=== PATIENT | male | born 1940 | race Caucasian/White ===

== ENCOUNTER 2017-12-05 06:51 | Outpatient (CLI) | payer OTHER | END 2017-12-05 07:01 | disposition home or self-care (01) | LOC: LAB 06:51 | DX: N18.3 Chronic kidney disease, stage 3 (moderate) (principal); I10 Essential (primary) hypertension; I12.9 Hypertensive chronic kidney disease with stage 1 through stage 4 chronic kidney disease, or unspecified chronic kidney disease; R73.01 Impaired fasting glucose ==

== ENCOUNTER 2018-01-04 06:22 | Outpatient (CLI) | payer OTHER | END 2018-01-04 06:43 | disposition home or self-care (01) | LOC: LAB 06:22 | DX: N40.1 Benign prostatic hyperplasia with lower urinary tract symptoms (principal); R31.9 Hematuria, unspecified; R97.20 Elevated prostate specific antigen [PSA]; I12.9 Hypertensive chronic kidney disease with stage 1 through stage 4 chronic kidney disease, or unspecified chronic kidney disease ==

== ENCOUNTER → 2018-06-01 06:29 | Outpatient (CLI) | payer OTHER | END | disposition home or self-care (01) | LOC: LAB 06:29 | DX: N18.3 Chronic kidney disease, stage 3 (moderate) (principal); I10 Essential (primary) hypertension; R80.8 Other proteinuria ==

== ENCOUNTER 2018-08-28 07:46 | Outpatient (CLI) | payer OTHER | END 2018-08-28 08:34 | disposition home or self-care (01) | LOC: LAB 07:46 | DX: N18.2 Chronic kidney disease, stage 2 (mild) (principal); I10 Essential (primary) hypertension; E11.21 Type 2 diabetes mellitus with diabetic nephropathy; R80.8 Other proteinuria; R97.20 Elevated prostate specific antigen [PSA]; R31.9 Hematuria, unspecified ==

== ENCOUNTER → 2018-12-27 07:57 | Outpatient (CLI) | payer OTHER | END | disposition home or self-care (01) | LOC: LAB 07:57 | DX: N18.2 Chronic kidney disease, stage 2 (mild) (principal); I10 Essential (primary) hypertension; R80.8 Other proteinuria ==

== ENCOUNTER 2019-12-24 06:39 | Outpatient (CLI) | payer OTHER | END 2019-12-24 06:45 | disposition home or self-care (01) | LOC: LAB 06:39 | PROVIDERS: ATTEND Internal Medicine Nephrology | DX: N40.1 Benign prostatic hyperplasia with lower urinary tract symptoms (principal); N18.2 Chronic kidney disease, stage 2 (mild); E11.21 Type 2 diabetes mellitus with diabetic nephropathy; R80.8 Other proteinuria ==

== ENCOUNTER 2021-01-24 10:57 | Emergency (ER) | payer OTHER ==
[~2021-01-24] VITALS: Ht 175.3 cm; Wt 72.1 kg
[2021-01-24] MEDS ORDERED: IRBESARTAN-HCT1 EACH PO (11:11)
[2021-01-24] MEDS ORDERED: TAMSULOSIN HCL0.4 MG PO (11:11)
== END 2021-01-24 21:59 | disposition home or self-care (01) ==
LOC: ER 10:57
DX: R33.8 Other retention of urine (principal); K59.09 Other constipation

== ENCOUNTER 2021-02-16 07:30 | Inpatient (IN) | payer OTHER ==
[~2021-02-16 07:30] MED LIST: IRBESARTAN-HCT1 EACH PO; TAMSULOSIN HCL0.4 MG PO
[2021-02-16] MEDS ORDERED: AVALIDE 300-121 EACH PO (09:28)
== END 2021-02-24 09:44 | disposition home or self-care (01) | DRG 714 ==
LOC: SURG 02-22 05:47 → O/R 02-22 05:47 → SURH 02-22 07:00 → SURG 02-22 13:34
PROVIDERS: ADMIT Urology; ATTEND Urology
PROC: 0VT08ZZ Resection of Prostate, Via Natural or Artificial Opening Endoscopic (ICD-10-PCS; principal; 2021-02-22 07:00)
DX: N40.1 Benign prostatic hyperplasia with lower urinary tract symptoms (principal); R33.8 Other retention of urine; Z20.822 Contact with and (suspected) exposure to COVID-19

== ENCOUNTER 2021-04-27 07:03 | Outpatient (CLI) | payer OTHER ==
[~2021-04-27 07:03] MED LIST changes: +AVALIDE 300-121 EACH PO
== END 2021-04-27 07:04 | disposition home or self-care (01) ==
LOC: LAB 07:03
PROVIDERS: ATTEND Urology
DX: I10 Essential (primary) hypertension (principal); N31.1 Reflex neuropathic bladder, not elsewhere classified; N40.1 Benign prostatic hyperplasia with lower urinary tract symptoms; R97.20 Elevated prostate specific antigen [PSA]; R80.8 Other proteinuria; N18.30 Chronic kidney disease, stage 3 unspecified

== ENCOUNTER 2021-09-25 07:08 | Outpatient (CLI) | payer OTHER | END 2021-09-25 15:00 | disposition home or self-care (01) | LOC: LAB 07:08 | PROVIDERS: ATTEND Internal Medicine Nephrology | DX: N18.30 Chronic kidney disease, stage 3 unspecified (principal); I10 Essential (primary) hypertension; R80.9 Proteinuria, unspecified ==

== ENCOUNTER 2021-09-28 10:59 | Outpatient (CLI) | payer OTHER | END 2021-09-28 11:06 | disposition home or self-care (01) | LOC: LAB 10:59 | PROVIDERS: ATTEND Internal Medicine Nephrology | DX: I12.9 Hypertensive chronic kidney disease with stage 1 through stage 4 chronic kidney disease, or unspecified chronic kidney disease (principal); R80.9 Proteinuria, unspecified; N18.30 Chronic kidney disease, stage 3 unspecified ==

== ENCOUNTER 2021-10-21 09:55 | Outpatient (CLI) | payer OTHER | END 2021-10-21 10:00 | disposition home or self-care (01) | LOC: LAB 09:55 | PROVIDERS: ATTEND Urology | DX: R31.1 Benign essential microscopic hematuria (principal); R97.20 Elevated prostate specific antigen [PSA]; I50.9 Heart failure, unspecified ==

== ENCOUNTER → 2022-06-29 06:51 | Outpatient (CLI) | payer OTHER | END | disposition home or self-care (01) | LOC: LAB 06:51 | PROVIDERS: ATTEND Urology | DX: D50.8 Other iron deficiency anemias (principal); R79.9 Abnormal finding of blood chemistry, unspecified; I10 Essential (primary) hypertension; R74.02 Elevation of levels of lactic acid dehydrogenase [LDH]; K76.89 Other specified diseases of liver; D63.8 Anemia in other chronic diseases classified elsewhere; D55.0 Anemia due to glucose-6-phosphate dehydrogenase [G6PD] deficiency; D51.1 Vitamin B12 deficiency anemia due to selective vitamin B12 malabsorption with proteinuria; D51.0 Vitamin B12 deficiency anemia due to intrinsic factor deficiency; D63.1 Anemia in chronic kidney disease; E06.3 Autoimmune thyroiditis; E03.8 Other specified hypothyroidism; R97.0 Elevated carcinoembryonic antigen [CEA]; R97.8 Other abnormal tumor markers; R97.20 Elevated prostate specific antigen [PSA] ==

== ENCOUNTER 2022-11-01 06:50 | Outpatient (CLI) | payer OTHER | END 2022-11-01 06:51 | disposition home or self-care (01) | LOC: LAB 06:50 | PROVIDERS: ATTEND Internal Medicine Hematology & Oncology | DX: D50.8 Other iron deficiency anemias (principal); R79.9 Abnormal finding of blood chemistry, unspecified; R74.02 Elevation of levels of lactic acid dehydrogenase [LDH]; K76.89 Other specified diseases of liver; D51.8 Other vitamin B12 deficiency anemias; D63.1 Anemia in chronic kidney disease; R97.0 Elevated carcinoembryonic antigen [CEA]; R97.8 Other abnormal tumor markers; R97.20 Elevated prostate specific antigen [PSA]; N18.30 Chronic kidney disease, stage 3 unspecified ==

== ENCOUNTER 2023-01-31 06:43 | Outpatient (CLI) | payer OTHER | END 2023-01-31 06:45 | disposition home or self-care (01) | LOC: LAB 06:43 | PROVIDERS: ATTEND Internal Medicine Hematology & Oncology | DX: E03.9 Hypothyroidism, unspecified (principal); E53.8 Deficiency of other specified B group vitamins; D50.8 Other iron deficiency anemias; R79.9 Abnormal finding of blood chemistry, unspecified; I10 Essential (primary) hypertension; R74.02 Elevation of levels of lactic acid dehydrogenase [LDH]; K76.89 Other specified diseases of liver; D63.1 Anemia in chronic kidney disease; B96.81 Helicobacter pylori [H. pylori] as the cause of diseases classified elsewhere ==

== ENCOUNTER → 2023-04-06 06:39 | Outpatient (CLI) | payer OTHER ==
[2023-04-06 07:23] LABS: HEMATOCRIT 37.5 % (39.0-48.0); MEAN CORPUSCULAR HEMOGLOBIN 30.8 pg (27.00-32.0); MEAN CORPUSCULAR HGB CONC 34.7 g/dl (32.0-36.0); PLATELET COUNT 221 K/uL (150-450); RED BLOOD COUNT 4.21 M/uL (4.00-6.00)
[2023-04-06 08:11] LABS: CREATININE SERUM 1.34 mg/dL (0.70-1.30); GFR 50.91; PHOSPHOROUS 3.4 mg/dL (2.5-4.9); POTASSIUM 3.53 mEq/L (3.5-5.1); PROSTATIC SPECIFIC ANTIGEN 2.21 NG/ML (0.010-4.00)
[2023-04-06 08:21] LABS: URINE APPEARANCE Clear; URINE BILIRRUBIN Negative (NEGATIVE); URINE BLOOD Negative; URINE COLOR Yellow; URINE GLUCOSE Negative (NEGATIVE); URINE LEUKOCYTE Negative; URINE NITRATE Negative; URINE PROTEIN Negative (NEGATIVE); URINE UROBILINOGEN 0.2 E.U./dl
[2023-04-06 08:26] LABS: URINE BACTERIA 1.2 uL (0.0-1933); URINE EPITHELIAL CELLS 0.3 uL (0.0-38.8); URINE RBC 0.7 uL (0.0-20.8); URINE WBC 0.7 uL (0.0-23.2)
[2023-04-06 08:41] LABS: URIC ACID 6.6 mg/dL (3.5-8.5)
== END | disposition home or self-care (01) ==
LOC: LAB 06:39
PROVIDERS: ATTEND Internal Medicine Nephrology
DX: I10 Essential (primary) hypertension (principal); R80.9 Proteinuria, unspecified; E11.42 Type 2 diabetes mellitus with diabetic polyneuropathy; R31.1 Benign essential microscopic hematuria; R97.20 Elevated prostate specific antigen [PSA]; Z88.1 Allergy status to other antibiotic agents; Z91.018 Allergy to other foods

== ENCOUNTER → 2023-04-10 10:51 | Outpatient (CLI) | payer OTHER ==
[2023-04-10 12:08] LABS: CREATININE URINE 58.8 MG/DL; URINE PROT QUANT 24HR 20.5 MG/DL
[2023-04-10 12:09] LABS: URINE PROT QUANT 24 HR 471.5 MG/24HR (42-225)
[2023-04-10 12:36] LABS: CREATINE CLEARANCE 67.7 ML/MIN (97-137); CREATININE SERUM 1.39 mg/dL (0.8-1.3)
== END | disposition home or self-care (01) ==
LOC: LAB 10:51
PROVIDERS: ATTEND Internal Medicine Hematology & Oncology
DX: D51.1 Vitamin B12 deficiency anemia due to selective vitamin B12 malabsorption with proteinuria (principal); D51.3 Other dietary vitamin B12 deficiency anemia; D63.1 Anemia in chronic kidney disease; I10 Essential (primary) hypertension; D51.8 Other vitamin B12 deficiency anemias; G47.33 Obstructive sleep apnea (adult) (pediatric); E72.11 Homocystinuria; Z88.1 Allergy status to other antibiotic agents; Z91.018 Allergy to other foods

== ENCOUNTER → 2023-07-03 07:27 | Outpatient (CLI) | payer OTHER ==
[2023-07-03 08:05] LABS: HEMATOCRIT 41.4 % (39.0-48.0); HEMOGLOBIN 13.9 g/dL (13-16.00); MEAN CELL VOLUME 90.7 fL (80.0-100.00); MEAN CORPUSCULAR HEMOGLOBIN 30.4 pg (27.00-32.0); MEAN CORPUSCULAR HGB CONC 33.6 g/dl (32.0-36.0); PLATELET COUNT 223 K/uL (150-450); RED BLOOD COUNT 4.56 M/uL (4.00-6.00); RED CELL DISTRIBUTION WIDTH 14.4 % (11.5-14.5)
[2023-07-03 09:04] LABS: ALBUMIN 4.4 gm/dL (3.4-5.0); BILIRUBIN TOTAL 0.92 mg/dL (0.3-1.2); CALCIUM 9.3 mg/dL (8.5-10.1); CREATININE SERUM 1.28 mg/dL (0.70-1.30); GFR 53.67; GLOBULINA 3.3 G/DL (2.4-3.5); POTASSIUM 3.35 mEq/L (3.5-5.1); T4 FREE 0.98 NG/ML (0.76-1.46); TOTAL PROTEIN 7.7 gm/dL (6.4-8.2); TSH 3.7 uIU/mL (0.358-3.74)
[2023-07-03 09:35] LABS: FOLIC ACID > 20.00 ng/ml (4.78-20)
[2023-07-03 10:13] LABS: MANUAL PLATELET COUNT 422
[2023-07-03 10:15] LABS: PLATELET ESTIMATE NORMAL (NORMAL)
[2023-07-04 18:06] LABS: ERYTHROPOIETIN 14.7 mIU/mL (2.6-18.5)
== END | disposition home or self-care (01) ==
LOC: LAB 07:27
PROVIDERS: ATTEND Internal Medicine Hematology & Oncology
DX: D51.9 Vitamin B12 deficiency anemia, unspecified (principal); D51.3 Other dietary vitamin B12 deficiency anemia; D63.1 Anemia in chronic kidney disease; I10 Essential (primary) hypertension; N18.30 Chronic kidney disease, stage 3 unspecified; D51.8 Other vitamin B12 deficiency anemias; B96.81 Helicobacter pylori [H. pylori] as the cause of diseases classified elsewhere; G47.33 Obstructive sleep apnea (adult) (pediatric); E72.11 Homocystinuria; R73.01 Impaired fasting glucose; N18.31 Chronic kidney disease, stage 3a

== ENCOUNTER → 2023-08-09 07:38 | Outpatient (CLI) | payer OTHER ==
[2023-08-09 08:12] LABS: HEMATOCRIT 40.9 % (39.0-48.0); HEMOGLOBIN 13.9 g/dL (13-16.00); MEAN CORPUSCULAR HEMOGLOBIN 30.6 pg (27.00-32.0); MEAN CORPUSCULAR HGB CONC 34.1 g/dl (32.0-36.0); PLATELET COUNT 215 K/uL (150-450); RED BLOOD COUNT 4.54 M/uL (4.00-6.00); RED CELL DISTRIBUTION WIDTH 14.3 % (11.5-14.5)
[2023-08-09 08:17] LABS: PH,URINE 6.5 (5.0-8.0); URINE APPEARANCE Clear; URINE BILIRRUBIN Negative (NEGATIVE); URINE BLOOD Negative; URINE COLOR Yellow; URINE GLUCOSE Negative (NEGATIVE); URINE LEUKOCYTE Negative; URINE NITRATE Negative; URINE PROTEIN Trace (NEGATIVE); URINE UROBILINOGEN 0.2 E.U./dl
[2023-08-09 08:18] LABS: URINE WBC 14.6 uL (0.0-23.2)
[2023-08-09 08:26] LABS: CREATININE URINE RANDOM 39.4 MG/DL (30-125)
[2023-08-09 08:50] LABS: ALBUMIN 4.1 gm/dL (3.4-5.0); BILIRUBIN TOTAL 0.86 mg/dL (0.3-1.2); CALCIUM 9.4 mg/dL (8.5-10.1); CHOL HDL RATIO 3.1 (0-5.0); CREATININE SERUM 1.38 mg/dL (0.70-1.30); GFR 49.21; GLOBULINA 3.3 G/DL (2.4-3.5); PHOSPHOROUS 3.1 mg/dL (2.5-4.9); POTASSIUM 4.04 mEq/L (3.5-5.1); TOTAL PROTEIN 7.4 gm/dL (6.4-8.2); URIC ACID 7.2 mg/dL (3.5-8.5)
[2023-08-09 09:03] LABS: TSH 2.76 uIU/mL (0.358-3.74)
[2023-08-09 10:11] LABS: URINE EPITHELIAL CELLS 0.3 uL (0.0-38.8)
== END | disposition home or self-care (01) ==
LOC: LAB 07:38
PROVIDERS: ATTEND Internal Medicine Nephrology
DX: N18.30 Chronic kidney disease, stage 3 unspecified (principal); I10 Essential (primary) hypertension; R80.9 Proteinuria, unspecified; N18.2 Chronic kidney disease, stage 2 (mild)

== ENCOUNTER 2023-12-27 07:47 | Outpatient (CLI) | payer OTHER ==
[~2023-12-27 07:47] MED LIST changes: +ST. JOSEPH ASPI81 M2
[2023-12-27 08:29] LABS: HEMATOCRIT 41.3 % (39.0-48.0); MEAN CORPUSCULAR HEMOGLOBIN 31.2 pg (27.00-32.0); MEAN CORPUSCULAR HGB CONC 33.9 g/dl (32.0-36.0); PLATELET COUNT 302 K/uL (150-450); RED BLOOD COUNT 4.49 M/uL (4.00-6.00); RED CELL DISTRIBUTION WIDTH 13.6 % (11.5-14.5)
[2023-12-27 08:30] LABS: PH,URINE 5.5 (5.0-8.0); URINE APPEARANCE Clear; URINE BILIRRUBIN Negative (NEGATIVE); URINE BLOOD Negative; URINE COLOR Yellow; URINE GLUCOSE Negative (NEGATIVE); URINE LEUKOCYTE Negative; URINE NITRATE Negative; URINE PROTEIN 30 (NEGATIVE); URINE UROBILINOGEN 0.2 E.U./dl
[2023-12-27 08:34] LABS: URINE BACTERIA 6.2 uL (0.0-1933); URINE RBC 2.5 uL (0.0-20.8); URINE WBC 2.3 uL (0.0-23.2)
[2023-12-27 08:45] LABS: URINE EPITHELIAL CELLS 0.4 uL (0.0-38.8)
[2023-12-27 09:18] LABS: BILIRUBIN TOTAL 0.78 mg/dL (0.3-1.2); CALCIUM 9.2 mg/dL (8.5-10.1); CHOL HDL RATIO 3.3 (0-5.0); CREATININE SERUM 1.35 mg/dL (0.70-1.30); GFR 50.35; GLOBULINA 3.6 G/DL (2.4-3.5); PHOSPHOROUS 3.1 mg/dL (2.5-4.9); POTASSIUM 3.96 mEq/L (3.5-5.1); TOTAL PROTEIN 7.6 gm/dL (6.4-8.2); TSH 2.14 uIU/mL (0.358-3.74)
[2023-12-27 11:15] LABS: URIC ACID 5.6 mg/dL (3.5-8.5)
== END 2023-12-27 07:48 | disposition home or self-care (01) ==
LOC: LAB 07:47
PROVIDERS: ATTEND Internal Medicine
DX: I11.9 Hypertensive heart disease without heart failure (principal); E11.9 Type 2 diabetes mellitus without complications; E03.9 Hypothyroidism, unspecified; E78.2 Mixed hyperlipidemia; N18.32 Chronic kidney disease, stage 3b; I10 Essential (primary) hypertension; E11.22 Type 2 diabetes mellitus with diabetic chronic kidney disease; R80.9 Proteinuria, unspecified

== ENCOUNTER 2024-04-22 06:20 | Outpatient (CLI) | payer OTHER ==
[2024-04-22 07:13] LABS: HEMATOCRIT 41.2 % (39.0-48.0); MEAN CELL VOLUME 90.1 fL (80.0-100.00); MEAN CORPUSCULAR HEMOGLOBIN 30.5 pg (27.00-32.0); MEAN CORPUSCULAR HGB CONC 33.9 g/dl (32.0-36.0); PLATELET COUNT 205 K/uL (150-450); RED BLOOD COUNT 4.57 M/uL (4.00-6.00); RED CELL DISTRIBUTION WIDTH 14.1 % (11.5-14.5)
[2024-04-22 08:15] LABS: ALBUMIN 4.3 gm/dL (3.4-5.0); BILIRUBIN TOTAL 1.17 mg/dL (0.3-1.2); CALCIUM 9.4 mg/dL (8.5-10.1); CREATININE SERUM 1.33 mg/dL (0.70-1.30); GFR 51.22; GLOBULINA 3.5 G/DL (2.4-3.5); POTASSIUM 3.83 mEq/L (3.5-5.1); TOTAL PROTEIN 7.8 gm/dL (6.4-8.2)
[2024-04-24 05:05] LABS: hav igm Negative (Negative); hcv Non Reactive (Non Reactive); hep b c Negative (Negative); hep b s ag Negative (Negative)
== END 2024-04-22 06:26 | disposition home or self-care (01) ==
LOC: LAB 06:20
DX: D64.9 Anemia, unspecified (principal); R74.01 Elevation of levels of liver transaminase levels; Z11.59 Encounter for screening for other viral diseases

== ENCOUNTER 2024-05-13 07:13 | Outpatient (CLI) | payer OTHER ==
[2024-05-13 08:06] LABS: HEMATOCRIT 41.1 % (39.0-48.0); HEMOGLOBIN 13.9 g/dL (13-16.00); MEAN CORPUSCULAR HEMOGLOBIN 30.5 pg (27.00-32.0); MEAN CORPUSCULAR HGB CONC 33.8 g/dl (32.0-36.0); PLATELET COUNT 196 K/uL (150-450); RED BLOOD COUNT 4.57 M/uL (4.00-6.00); RED CELL DISTRIBUTION WIDTH 14.2 % (11.5-14.5)
[2024-05-13 09:03] LABS: % SATURACION 21.1 % (20-50); ALBUMIN 4.2 gm/dL (3.4-5.0); BILIRUBIN TOTAL 0.71 mg/dL (0.3-1.2); CALCIUM 9.1 mg/dL (8.5-10.1); CREATININE SERUM 1.45 mg/dL (0.70-1.30); FERRITIN 49.2 NG/ML (26-388); GFR 46.36; GLOBULINA 3.3 G/DL (2.4-3.5); TOTAL PROTEIN 7.5 gm/dL (6.4-8.2)
[2024-05-13 10:52] LABS: FOLIC ACID 13.5 ng/ml (4.78-20)
[2024-05-13 14:27] LABS: MANUAL PLATELET COUNT 298
[2024-05-13 14:28] LABS: PLATELET ESTIMATE NORMAL (NORMAL)
[2024-05-14 18:10] LABS: anti thy < 1.0 IU/mL (0.0-0.9); tpo 12 IU/mL (0-34)
[2024-05-15 18:10] LABS: PROTEIN C ACTIVITY 99 % (73-180); PROTEIN S ACTIVITY 68 % (63-140); Protein s 83 % (60-150); Protein s free 88 % (61-136)
[2024-05-16 10:07] LABS: PROTEIN C ANTIGEN 86 % (60-150)
== END 2024-05-13 07:14 | disposition home or self-care (01) ==
LOC: LAB 07:13
PROVIDERS: ATTEND Internal Medicine Hematology & Oncology
DX: D68.61 Antiphospholipid syndrome (principal); E72.12 Methylenetetrahydrofolate reductase deficiency; D51.1 Vitamin B12 deficiency anemia due to selective vitamin B12 malabsorption with proteinuria; D51.3 Other dietary vitamin B12 deficiency anemia; D63.1 Anemia in chronic kidney disease; N18.30 Chronic kidney disease, stage 3 unspecified; I10 Essential (primary) hypertension; D51.8 Other vitamin B12 deficiency anemias; G47.33 Obstructive sleep apnea (adult) (pediatric); B96.81 Helicobacter pylori [H. pylori] as the cause of diseases classified elsewhere; R74.02 Elevation of levels of lactic acid dehydrogenase [LDH]; K76.89 Other specified diseases of liver

== ENCOUNTER → 2024-09-27 06:47 | Outpatient (CLI) | payer OTHER ==
[2024-09-27 07:27] LABS: HEMATOCRIT 41.6 % (39.0-48.0); HEMOGLOBIN 13.7 g/dL (13-16.00); MEAN CELL VOLUME 91.2 fL (80.0-100.00); MEAN CORPUSCULAR HEMOGLOBIN 30.1 pg (27.00-32.0); PLATELET COUNT 207 K/uL (150-450); RED BLOOD COUNT 4.56 M/uL (4.00-6.00); RED CELL DISTRIBUTION WIDTH 14.4 % (11.5-14.5)
[2024-09-27 07:28] LABS: URINE APPEARANCE Clear; URINE BILIRRUBIN Negative (NEGATIVE); URINE BLOOD Negative; URINE COLOR Yellow; URINE GLUCOSE Negative (NEGATIVE); URINE KETONE Negative (NEGATIVE); URINE LEUKOCYTE Negative; URINE NITRATE Negative; URINE PROTEIN Trace (NEGATIVE); URINE UROBILINOGEN 0.2 E.U./dl
[2024-09-27 07:31] LABS: URINE BACTERIA 4.8 uL (0.0-1933); URINE RBC 2.6 uL (0.0-20.8)
[2024-09-27 07:35] LABS: URINE EPITHELIAL CELLS 0.6 uL (0.0-38.8)
[2024-09-27 07:49] LABS: CREATININE URINE RANDOM 51.4 MG/DL (30-125)
[2024-09-27 08:36] LABS: ALBUMIN 4.2 gm/dL (3.4-5.0); BILIRUBIN TOTAL 0.98 mg/dL (0.3-1.2); CALCIUM 9.3 mg/dL (8.5-10.1); CREATININE SERUM 1.36 mg/dL (0.70-1.30); GFR 49.92; GLOBULINA 3.1 G/DL (2.4-3.5); POTASSIUM 3.87 mEq/L (3.5-5.1); PROSTATIC SPECIFIC ANTIGEN 3.14 NG/ML (0.010-4.00); T4 TOTAL 8.37 UG/DL (4.5-12.1); TOTAL PROTEIN 7.3 gm/dL (6.4-8.2); TSH 2.15 uIU/mL (0.358-3.74)
[2024-09-27 09:12] LABS: URIC ACID 6.2 mg/dL (3.5-8.5)
== END | disposition home or self-care (01) ==
LOC: LAB 06:47
PROVIDERS: ATTEND Internal Medicine Gastroenterology
DX: N18.30 Chronic kidney disease, stage 3 unspecified (principal); I10 Essential (primary) hypertension; E11.21 Type 2 diabetes mellitus with diabetic nephropathy; R80.9 Proteinuria, unspecified; K29.30 Chronic superficial gastritis without bleeding; D51.8 Other vitamin B12 deficiency anemias; R63.4 Abnormal weight loss; N40.0 Benign prostatic hyperplasia without lower urinary tract symptoms; E03.8 Other specified hypothyroidism; R10.9 Unspecified abdominal pain

== ENCOUNTER 2024-10-04 07:31 | Outpatient (CLI) | payer OTHER | END 2024-10-04 07:35 | disposition home or self-care (01) | LOC: TOM 07:31 | PROVIDERS: ATTEND Internal Medicine Gastroenterology | DX: K29.30 Chronic superficial gastritis without bleeding (principal); D51.8 Other vitamin B12 deficiency anemias; R63.4 Abnormal weight loss; N40.0 Benign prostatic hyperplasia without lower urinary tract symptoms; E03.8 Other specified hypothyroidism ==

== ENCOUNTER 2024-12-30 06:56 | Outpatient (CLI) | payer OTHER ==
[2024-12-30 07:47] LABS: BASO % 0.9 % (0.1-1.2); EOS # 0.38 (0.04-0.54); EOS % 6.6 % (0.7-7.0); LYMPH # 1.16 (1.18-3.74); LYMPH % 20.3 % (19.3-53.1); MEAN PLATELET VOLUME 11.10 fl (9.4-12.4); MONO # 0.42 (0.24-0.82); MONO % 7.3 % (4.7-12.5); NEUT # 3.70 (1.56-6.13); NEUT % 64.7 % (34.0-71.1); RED CELL DISTRIBUTION WIDTH 13.0 % (11.6-14.4)
[2024-12-30 08:00] LABS: URINE APPEARANCE Clear; URINE BILIRRUBIN Negative (NEGATIVE); URINE BLOOD Negative; URINE COLOR Yellow; URINE GLUCOSE Negative (NEGATIVE); URINE KETONE Negative (NEGATIVE); URINE LEUKOCYTE Negative; URINE NITRATE Negative; URINE PROTEIN Trace (NEGATIVE); URINE UROBILINOGEN 0.2 E.U./dl
[2024-12-30 08:04] LABS: URINE BACTERIA 2.4 uL (0.0-1933); URINE CAST 0.00 uL (0.0-1.40); URINE EPITHELIAL CELLS 0.0 uL (0.0-38.8); URINE RBC 1.0 uL (0.0-20.8); URINE WBC 1.2 uL (0.0-23.2)
[2024-12-30 08:15] LABS: CREATININE URINE RANDOM 41.6 MG/DL (30-125)
[2024-12-30 08:33] LABS: BUN CREA RATIO 24.0 (7.0-25.0); CREATININE SERUM 1.35 mg/dL (0.70-1.30); GFR 50.23; GLUCOSE FASTING 105.0 mg/dL (65-100); OSMOLALITY SERUM 294.0 MOSM/KG (275-295)
== END 2024-12-30 07:05 | disposition home or self-care (01) ==
LOC: LAB 06:56
PROVIDERS: ATTEND Internal Medicine Nephrology
DX: N18.31 Chronic kidney disease, stage 3a (principal); I10 Essential (primary) hypertension; E11.21 Type 2 diabetes mellitus with diabetic nephropathy; R80.9 Proteinuria, unspecified

== ENCOUNTER → 2025-01-29 07:28 | Outpatient (CLI) | payer OTHER ==
[2025-01-29 08:49] LABS: URINE APPEARANCE Clear; URINE BILIRRUBIN Negative (NEGATIVE); URINE BLOOD Negative; URINE COLOR Yellow; URINE GLUCOSE Negative (NEGATIVE); URINE KETONE Negative (NEGATIVE); URINE LEUKOCYTE Negative; URINE NITRATE Negative; URINE PROTEIN Trace (NEGATIVE); URINE UROBILINOGEN 0.2 E.U./dl
[2025-01-29 08:53] LABS: BASO % 1.0 % (0.1-1.2); EOS # 0.24 (0.04-0.54); EOS % 4.9 % (0.7-7.0); LYMPH # 0.86 (1.18-3.74); LYMPH % 17.6 % (19.3-53.1); MEAN PLATELET VOLUME 11.40 fl (9.4-12.4); MONO # 0.40 (0.24-0.82); MONO % 8.2 % (4.7-12.5); NEUT # 3.32 (1.56-6.13); NEUT % 68.1 % (34.0-71.1); RED CELL DISTRIBUTION WIDTH 12.9 % (11.6-14.4)
[2025-01-29 09:26] LABS: URINE BACTERIA 1.1 uL (0.0-1933); URINE CAST 0.00 uL (0.0-1.40); URINE EPITHELIAL CELLS 0.1 uL (0.0-38.8); URINE RBC 1.3 uL (0.0-20.8); URINE WBC 0.4 uL (0.0-23.2)
[2025-01-29 09:29] LABS: ALT/SGPT 22.0 U/L (12-78); AST/SGOT 23.0 U/L (15-37); BILIRUBIN TOTAL 1.0 mg/dL (0.3-1.2); BUN CREA RATIO 20.0 (7.0-25.0); CREATININE SERUM 1.26 mg/dL (0.70-1.30); FE 109.0 ug/dl (65-175); GFR 54.39; GLOBULINA 2.9 G/DL (2.4-3.5); GLUCOSE FASTING 88.0 mg/dL (65-100); LDH 181.0 U/L (87-241); OSMOLALITY SERUM 289.0 MOSM/KG (275-295); PROSTATIC SPECIFIC ANTIGEN 2.64 NG/ML (0.010-4.00)
[2025-01-29 14:24] LABS: FOLIC ACID 18.72 ng/ml (4.78-20); VITAMIN D3 25 HYDROXY 30.8 ng/ml (30-120)
[2025-01-29 15:28] LABS: MANUAL PLATELET COUNT 207
== END | disposition home or self-care (01) ==
LOC: LAB 07:28
PROVIDERS: ATTEND Internal Medicine Hematology & Oncology
DX: N40.1 Benign prostatic hyperplasia with lower urinary tract symptoms (principal); R33.9 Retention of urine, unspecified; R97.20 Elevated prostate specific antigen [PSA]; D50.8 Other iron deficiency anemias; R79.9 Abnormal finding of blood chemistry, unspecified; I10 Essential (primary) hypertension; R74.02 Elevation of levels of lactic acid dehydrogenase [LDH]; K76.89 Other specified diseases of liver; D51.8 Other vitamin B12 deficiency anemias; E55.9 Vitamin D deficiency, unspecified; Z13.29 Encounter for screening for other suspected endocrine disorder; D68.61 Antiphospholipid syndrome; D51.1 Vitamin B12 deficiency anemia due to selective vitamin B12 malabsorption with proteinuria; D51.3 Other dietary vitamin B12 deficiency anemia; D63.1 Anemia in chronic kidney disease; N18.30 Chronic kidney disease, stage 3 unspecified; G47.33 Obstructive sleep apnea (adult) (pediatric); B96.81 Helicobacter pylori [H. pylori] as the cause of diseases classified elsewhere

== ENCOUNTER → 2025-03-11 06:39 | Outpatient (CLI) | payer OTHER ==
[2025-03-11 07:29] LABS: BASO % 0.9 % (0.1-1.2); EOS # 0.41 (0.04-0.54); EOS % 7.5 % (0.7-7.0); LYMPH # 0.97 (1.18-3.74); LYMPH % 17.8 % (19.3-53.1); MEAN PLATELET VOLUME 10.90 fl (9.4-12.4); MONO # 0.35 (0.24-0.82); MONO % 6.4 % (4.7-12.5); NEUT # 3.67 (1.56-6.13); NEUT % 67.2 % (34.0-71.1); RED CELL DISTRIBUTION WIDTH 13.2 % (11.6-14.4)
[2025-03-11 07:47] LABS: URINE APPEARANCE Clear; URINE BILIRRUBIN Negative (NEGATIVE); URINE BLOOD Negative; URINE COLOR Yellow; URINE GLUCOSE Negative (NEGATIVE); URINE KETONE Negative (NEGATIVE); URINE LEUKOCYTE Negative; URINE NITRATE Negative; URINE PROTEIN Negative (NEGATIVE); URINE UROBILINOGEN 0.2 E.U./dl
[2025-03-11 07:55] LABS: URINE BACTERIA 1.1 uL (0.0-1933); URINE CAST 0.00 uL (0.0-1.40); URINE EPITHELIAL CELLS 0.3 uL (0.0-38.8); URINE RBC 0.8 uL (0.0-20.8); URINE WBC 0.6 uL (0.0-23.2)
[2025-03-11 07:57] LABS: CREATININE URINE RANDOM 25.6 MG/DL (30-125)
[2025-03-11 08:08] LABS: ALT/SGPT 20.0 U/L (12-78); AST/SGOT 19.0 U/L (15-37); BILIRUBIN TOTAL 0.84 mg/dL (0.3-1.2); BUN CREA RATIO 19.0 (7.0-25.0); CREATININE SERUM 1.39 mg/dL (0.70-1.30); GFR 48.56; GLOBULINA 3.0 G/DL (2.4-3.5); GLUCOSE FASTING 102.0 mg/dL (65-100); LDH 181.0 U/L (87-241); OSMOLALITY SERUM 294.0 MOSM/KG (275-295)
== END | disposition home or self-care (01) ==
LOC: LAB 06:39
PROVIDERS: ATTEND Internal Medicine Hematology & Oncology
DX: D50.8 Other iron deficiency anemias (principal); D51.1 Vitamin B12 deficiency anemia due to selective vitamin B12 malabsorption with proteinuria; D51.3 Other dietary vitamin B12 deficiency anemia; D63.1 Anemia in chronic kidney disease; I10 Essential (primary) hypertension; D51.8 Other vitamin B12 deficiency anemias; G47.33 Obstructive sleep apnea (adult) (pediatric); B96.81 Helicobacter pylori [H. pylori] as the cause of diseases classified elsewhere; J47.9 Bronchiectasis, uncomplicated; K59.00 Constipation, unspecified; D63.0 Anemia in neoplastic disease; R74.02 Elevation of levels of lactic acid dehydrogenase [LDH]; K76.89 Other specified diseases of liver; N39.0 Urinary tract infection, site not specified; R80.9 Proteinuria, unspecified; R94.4 Abnormal results of kidney function studies

== ENCOUNTER 2025-05-26 07:19 | Outpatient (CLI) | payer OTHER ==
[2025-05-26 08:21] LABS: URINE APPEARANCE Clear; URINE BILIRRUBIN Negative (NEGATIVE); URINE BLOOD Negative; URINE COLOR Yellow; URINE GLUCOSE Negative (NEGATIVE); URINE KETONE Negative (NEGATIVE); URINE LEUKOCYTE Negative; URINE NITRATE Negative; URINE PROTEIN Trace (NEGATIVE); URINE UROBILINOGEN 0.2 E.U./dl
[2025-05-26 08:22] LABS: URINE WBC 1.8 uL (0.0-23.2)
[2025-05-26 08:31] LABS: URINE BACTERIA 1.2 uL (0.0-1933); URINE CAST 0.00 uL (0.0-1.40); URINE EPITHELIAL CELLS 0.0 uL (0.0-38.8); URINE RBC 0.5 uL (0.0-20.8)
[2025-05-26 08:35] LABS: CREATININE URINE RANDOM 40.4 MG/DL (30-125)
[2025-05-26 08:40] LABS: BASO % 0.7 % (0.1-1.2); EOS # 0.28 (0.04-0.54); EOS % 5.0 % (0.7-7.0); LYMPH # 0.91 (1.18-3.74); LYMPH % 16.2 % (19.3-53.1); MEAN PLATELET VOLUME 11.00 fl (9.4-12.4); MONO # 0.55 (0.24-0.82); MONO % 9.8 % (4.7-12.5); NEUT # 3.81 (1.56-6.13); NEUT % 67.8 % (34.0-71.1); RED CELL DISTRIBUTION WIDTH 13.5 % (11.6-14.4)
[2025-05-26 09:39] LABS: BUN CREA RATIO 22.0 (7.0-25.0); CREATININE SERUM 1.29 mg/dL (0.70-1.30); GFR 52.93; GLUCOSE FASTING 102.0 mg/dL (65-100); OSMOLALITY SERUM 293.0 MOSM/KG (275-295)
== END 2025-05-26 07:20 | disposition home or self-care (01) ==
LOC: LAB 07:19
PROVIDERS: ATTEND Internal Medicine Nephrology
DX: N18.31 Chronic kidney disease, stage 3a (principal); I10 Essential (primary) hypertension; E11.21 Type 2 diabetes mellitus with diabetic nephropathy; R80.9 Proteinuria, unspecified